=== PATIENT | female | born 1925 | race Caucasian/White ===

== ENCOUNTER → 2016-11-18 | Outpatient (CLI) | payer BC ==
[~2016-11-18] MED LIST: AMB5 PO; ASPCH81 PO; ASPEC81 PO; ATOR10TA88 PO; CLC100 PO; CLTP PO; CYAN10005 PO; EFF50 PO; EFFSR75 PO; FLR1 PO; GABA-113 PO; MAGN400T6 PO; MULT-506 PO; OXYC-57 PO; PANT40TA PO; XNX25 PO
--- NOTE | 2016-11-18 16:00 | DIAGNOSTIC IMAGING REPORT ---
LUMBAR SPINE 5 VIEWS HISTORY: Trauma pain COMPARISON: None. FINDINGS: There is no fracture. No subluxation. Considerable degenerative intervertebral this changes throughout. Moderate osteophytic change from all components of the vertebral body margins. Posterior element are intact. 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 No acute process. Electronically signed by: Jeremiah Henriquez M.D. 11/18/2016 3:58 PM Dictated Date/Time: 11/18/2016 3:57 PM
--- NOTE | 2016-11-18 16:01 | DIAGNOSTIC IMAGING REPORT ---
PELVIS 1 OR 2 VIEW ROUTINE CLINICAL HISTORY: W19.XXXA [place] trauma. Pain. COMPARISON: None. DISCUSSION: The bones and joint spaces appear intact. There is no evidence of fracture, dislocation or bony disease. Mild to moderate degenerative change of both hips as well as the low lumbar spine. 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 No evidence for acetabular protrusion. IMPRESSION: Degenerative change. No acute process. Electronically signed by: Jeremiah Henriquez M.D. 11/18/2016 3:59 PM Dictated Date/Time: 11/18/2016 3:59 PM
--- NOTE | 2016-11-20 09:49 | CODING QUERY NO DIAGNOSIS ---
TREATMENT RENDERED WITHOUT A DIAGNOSIS Dr. Weaver, To promote full compliance with coding requirements relating to patient care, physician participation is requested in all cases of junior brand manager uncertainty. Please assist us with providing a diagnosis/symptom for the test(s) below: A diagnosis/symptom was not documented on your Order. A valid diagnosis/symptom is required to bill all insurances. Please remember that we are unable to code a diagnosis of rule out, probable, possible, questionable, or suspected. Tests that require a diagnosis: * LUMBAR SPINE X-RAY ROUTINE MIN 4 VIE DIAGNOSIS: * PELVIS X-RAY 1 OR 2 VIEWS DIAGNOSIS: DATE OF SERVICE: 11/18/16 CANNOT USE W CODE FIRST DIAGNOSIS Provider Signature: Date: Thank you [facility] Information Management Once completed, please kindly fax back to [phone] For questions please call [phone]
== END | disposition home or self-care (01) ==
LOC: C.RAD1850 15:32
PROVIDERS: ATTEND Internal Medicine
DX: R29.6 Repeated falls (principal)

== ENCOUNTER → 2016-12-25 | Outpatient (CLI) | payer BC ==
[2016-12-25 13:06] LABS: BASO % 0.3 %; BASO ABS # 0.02 K/uL (0-0.2); COMPLETE YES; EOS % 2.1 %; HEMATOCRIT 37.2 % (37-47); IG% 0.5 %; LYMPH % 15.8 %; LYMPH ABS # 1.19 K/uL (1.2-3.4); MEAN CELL VOLUME 88.6 fL (80-100); MEAN CORPUSCULAR HGB CONC 34.9 g/dl (32-36); MEAN PLATELET VOLUME 10.1 fL (7.4-10.4); MONO % 10.5 %; NEUT % 70.8 %; PLATELET COUNT 226 K/uL (130-400); WHITE BLOOD COUNT 7.51 K/uL (4.8-10.8)
[2016-12-25 13:19] LABS: ESTIMATED AVERAGE GLUCOSE 111 mg/dl; HA1C FLAG Normal (Normal)
[2016-12-25 13:34] LABS: BLOOD UREA NITROGEN 25 mg/dl (7-18); BUN/CREATININE RATIO 22.7 (10-20); CALCIUM 9.5 mg/dl (8.5-10.1); CARBON DIOXIDE 20 mmol/L (21-32); CHLORIDE 110 mmol/L (98-107); GLUCOSE 80 mg/dl (70-99); POTASSIUM 4.1 mmol/L (3.5-5.1); SODIUM 143 mmol/L (136-145)
[2016-12-25 13:44] LABS: CHOLESTEROL 157 mg/dl (0-200); CHOLESTEROL/HDL RATIO 3.3; HDL CHOLESTEROL 48 mg/dl; LDL CHOLESTEROL CALCULATED 79 mg/dl; TRIGLYCERIDES 152 mg/dl (0-150); VERY LOW DENSITY LIPOPROT CALC 30 mg/dl
== END | disposition home or self-care (01) ==
LOC: C.LAB1850 11:54
PROVIDERS: ATTEND Internal Medicine
DX: R73.9 Hyperglycemia, unspecified (principal); N28.9 Disorder of kidney and ureter, unspecified; E03.9 Hypothyroidism, unspecified; E78.5 Hyperlipidemia, unspecified

== ENCOUNTER → 2017-01-01 | Outpatient (CLI) | payer BC | END | disposition home or self-care (01) | LOC: C.LABSPEC 12:00 | PROVIDERS: ATTEND Internal Medicine | DX: L02.419 Cutaneous abscess of limb, unspecified (principal) ==